=== PATIENT | female | born 1975 | race Caucasian/White ===

== ENCOUNTER 2020-10-13 15:59 | Emergency (ER) | payer BC, SELFPAY ==
[2020-10-13 16:00] VITALS: BP 122/79; PULSE 75; RESP 16; TEMP 36.6; O2SAT 99; BMI 23.9
--- NOTE | 2020-10-13 16:05 | XR_ITS ---
PROCEDURE: XR CHEST PORTABLE Referring Doctor: Kelly Mal Patient Age:45Y CLINICAL HISTORY: CHEST PAIN . Dyspnea. Smoker COMPARISON: CR CXR CHEST(2 VIEWS-NOT PORTABLE) from 01/17/2015 CR CXR CHEST(2 VIEWS-NOT PORTABLE) from 05/05/2016 FINDINGS: AP upright portable chest is compared to 2015 and 2014 CXR. The lungs are well expanded and overall appear fairly clear. The left lung stable unremarkable. Right chest but markings are slightly accentuated right infrahilar region but I believe this is basically stable and related overlying breast density but doubt early infiltrate. Heart, eboni and mediastinal structures appear satisfactory. monitor worker leads are in place but chest wall unremarkable no pleural effusion but no pneumothorax but . The cardiomediastinal silhouette and pulmonary vascularity are within normal limits. The lungs are clear without infiltrates, suspicious nodules, or pleural effusions. No acute bony abnormalities. IMPRESSION: Nothing definitely acute Lung markings are very slightly accentuated right infrahilar region compared to prior studies, but I suspect this due to technique and along with minimal chronic changes with smoking history.-. (Also with note subtle hyperexpansion towards the upper lung singh which may reflect some early emphysematous changes upper lobes). In either case currently doubt early infiltrate right infrahilar region but clinical correlation required. Dictated by: Omar Saunders MD 10/13/2020 17:00 Omar Saunders MD in [place] 10/13/2020 17:00
--- NOTE | 2020-10-13 16:06 | ECG_ITS ---
APPROVED REPORT Exam: Resting ECG HR:64 bpm ECG Measurements Heart Rate 64 AXES WV 146 P 58 QRSd 84 QRS 76 QT 392 T 58 QTc 404 Conclusion Normal sinus rhythm Normal ECG Electronically signed by : Jacob Acevedo, 10/14/2020 21:49:44
--- NOTE | 2020-10-13 16:10 | HMH.EDGENADL ---
ED Disposition Clinical Impression: Palpitations, Atypical chest pain Disposition: Home, Self-Care Condition on Discharge: Good Instructions: DI for Atypical Chest Pain, DI for Palpitations Additional Instructions: Additional instructions for CHEST PAIN: See your physician as soon as possible for further evaluation. Return immediately if worsening chest pain, vomiting, shortness of breath, fever, coughing of blood. Referrals: Provider,Referral, [Referring] - - Critical Care Critical Care Time: No Attestation: On 10/13/20, the high probability of a clinically significant, sudden or life threatening deterioration of the following system(s) required my full and direct attention, intervention and personal management. The time I documented below is in addition to time spent performing reported procedures but includes the following listed in this critical care notation. Medical Decision Making - Medical Records Medical records reviewed: Yes: I reviewed the patient's medical records. - Angel Inquiry Pt receiving controlled substance: No Vital Signs: 10/13/20 16:00 10/13/20 19:30 Temperature 98 F Temperature Source Oral Pulse Rate [Radial] 75 78 Respiratory Rate 16 14 Blood Pressure [Right Arm] 122/79 115/73 Blood Pressure Mean [Right Arm] 93 87 Blood Pressure Source [Right Arm] Automatic Cuff Blood Pressure Position [Right Arm] Sitting Sitting 02 Sat by Pulse Oximetry 99 99 Oxygen Delivery Method Room Air Room Air - Lab Data Lab results reviewed: Yes: I reviewed the patient's lab results. Lab Results 10/13/20 16:20: WBC 6.3, RBC 4.31, Hgb 13.5, Hct 40.5, MCV 93.9, MCH 31.4 H, MCHC 33.5, RDW 13.9, Plt Count 220, MPV 8.9, Neut % (Auto) 54.0, Lymph % (Auto) 36.2, Whitman % (Auto) 5.1, Eos % (Auto) 3.9, Baso % (Auto) 0.9, Neut # (Auto) 3.4, Lymph # (Auto) 2.3, Whitman # (Auto) 0.3, Eos # (Auto) 0.2, Baso # (Auto) 0.1 10/13/20 16:20: Sodium 140, Potassium 3.8, Chloride 107, Carbon Dioxide 27, Anion Gap 9.8, BUN 9, Creatinine 0.60, Estimated Creat Clear 114, Estimated GFR 108, Est GFR ( Amer) 131, Glucose 93, Calcium 8.9, Troponin I < 0.01 10/13/20 19:13: Troponin I < 0.01 Result diagrams: 10/13/20 16:20 10/13/20 16:20 Orders (Tests/Meds): ORDERS Category Date Time Status Troponin I Q3H Lab 10/13/20 22:15 Ordered - Radiology Data #1 Image(s): Chest Image Reviewed: Yes I have reviewed radiologist's interpretation PROCEDURE: XR CHEST PORTABLE Referring Doctor: Mal Mendoza Patient Age:45Y CLINICAL HISTORY: CHEST PAIN . Dyspnea. Smoker COMPARISON: CR CXR CHEST(2 VIEWS-NOT PORTABLE) from 01/17/2015 CR CXR CHEST(2 VIEWS-NOT PORTABLE) from 05/05/2016 FINDINGS: AP upright portable chest is compared to 2015 and 2014 CXR. The lungs are well expanded and overall appear fairly clear. The left lung stable unremarkable. Right chest but markings are slightly accentuated right infrahilar region but I believe this is basically stable and related overlying breast density but doubt early infiltrate. Heart, eboni and mediastinal structures appear satisfactory. 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 The cardiomediastinal silhouette and pulmonary vascularity are within normal limits. The lungs are clear without infiltrates, suspicious nodules, or pleural effusions. No acute bony abnormalities. IMPRESSION: Nothing definitely acute Lung markings are very slightly accentuated right infrahilar region compared to prior studies, but I suspect this due to technique and along with minimal chronic changes with smoking history.-. (Also with note subtle hyperexpansion towards the upper lung singh which may reflect some early emphysematous changes upper lobes). In either case currently doubt early infiltrate right infrahilar region but clinical correlation required.
[2020-10-13 16:33] LABS: Basophils # 0.1 K/mm3 (0-0.2); Basophils % 0.9 % (0.1-2.0); Eosinophils # 0.2 K/mm3 (0.0-0.4); Eosinophils % 3.9 % (0.1-12.0); Hematocrit 40.5 % (37.0-47.0); Hemoglobin 13.5 g/dL (12.2-16.2); Lymphocytes # 2.3 K/mm3 (0.7-4.5); Lymphocytes % 36.2 % (10-50); Mean Corpuscular HGB Conc 33.5 g/dL (31.8-35.4); Mean Corpuscular Hemoglobin 31.4 pg (27.0-31.2); Mean Corpuscular Volume 93.9 fl (81-99); Mean Platelet Volume 8.9 fl (7.4-10.4); Monocytes # 0.3 K/mm3 (0.1-1.0); Monocytes % 5.1 % (1.7-9.3); Neutrophils # 3.4 K/mm3 (1.8-7.8); Platelet Count 220 K/mm3 (142-424); Red Blood Count 4.31 M/mm3 (4.20-5.40); Red Cell Distribution Width 13.9 % (11.5-17.5); White Blood Count 6.3 K/mm3 (4.8-10.8)
[2020-10-13 16:42] LABS: Anion Gap 9.8 mEq/L (5-15); Blood Urea Nitrogen 9 mg/dl (7-17); Calcium 8.9 mg/dl (8.4-10.2); Carbon Dioxide 27 mmol/L (22.0-30.0); Chloride 107 mmol/L (98-107); Creatinine Clearance Estimated 114 mL/min (50-200); Estimated Glomerular Filt Rate 108 ml/min (>60); GFR (African American) 131 ML/MIN (>60); Glucose 93 mg/dl (74-100); Potassium 3.8 mmoL/L (3.5-5.1); Sodium 140 mmol/L (136-145)
[2020-10-13 16:55] LABS: Troponin I < 0.01 ng/ml (0.00-0.034)
--- NOTE | 2020-10-13 19:16 | PC.NURSE ---
blood sent to lab for 2nd trop
[2020-10-13 19:30] VITALS: BP 115/73; PULSE 78; RESP 14; O2SAT 99
--- NOTE | 2020-10-13 20:01 | PC.NURSE ---
called lab for trop. results. lab stated it would be another 15-20 minutes
[2020-10-13 20:23] LABS: Troponin I < 0.01 ng/ml (0.00-0.034)
[2020-10-13 20:27] VITALS: BP 129/61; PULSE 73; RESP 15; TEMP 36.8; O2SAT 99
== END 2020-10-13 20:29 | disposition home or self-care (01) ==
PROVIDERS: Emergency Provider Emergency Medicine; PCP Family Medicine
DX: R07.89 Other chest pain (principal); R00.2 Palpitations; Z88.0 Allergy status to penicillin; Z88.5 Allergy status to narcotic agent
CPT/HCPCS: 71045; 80048; 84484; 85025; 93005; 99283

== ENCOUNTER 2022-05-25 18:13 | Emergency (ER) | payer BC, SELFPAY ==
[2022-05-25 18:25] VITALS: BP 134/81; PULSE 76; RESP 19; TEMP 37; O2SAT 98; BMI 23.9
--- NOTE | 2022-05-25 18:36 | HMH.EDUTC ---
[facility] [place] Disposition Clinical Impression: UTI (urinary tract infection) Qualifiers: Urinary tract infection type: site unspecified Hematuria presence: with hematuria Qualified Code(s): N39.0 - Urinary tract infection, site not specified; R31.9 - Hematuria, unspecified Disposition: Home, Self-Care Condition on Discharge: Good Instructions: DI for Urinary Tract Infection (UTI), Urinary Tract Infection, Nitrofurantoin Additional Instructions: *Increase fluids. Water not Soda or Tea *Start antibiotic immediately and be sure to take as ordered for the FULL length of time although you should start to see improvement over the next 48 hours *Pyridium as needed Remember this medication will turn your urine [place]. This is normal but it will stain what ever it gets on *You should not use Pyridium for more than 48 hours. If so , follow up with your primary physician to review urine culture and ensure that antibiotic is adequate for infection *Be SURE to follow up anytime for new or worsening symptoms with your family doctor. AND in 48 hours for urine culture results with your family doctor, if you do not have a doctor then you may call back to the [facility] for urine culture results and further treatment. We do recommend that you choose and establish care with a Primary Care Physician. AND follow up with them in 10-14 days to repeat UA to ensure infection is resolved and blood no longer present *Be sure to let your PCP know that we sent urine cultures from the [facility] so they can follow up to ensure that you area the on the correct antibiotic Call your doctor office and make appointment for 48 hours (2 days from today) to follow up and get the results of your urine culture and further treatment Prescriptions: Nitrofurantoin Monohyd/M-Cryst [Macrobid 100 mg Capsule] 100 mg PO BID 7 Days #14 cap Prescription Printed Phenazopyridine HCl [Pyridium 200mg Tablet] 200 pow PO TID #6 tab Prescription Printed Referrals: Dorothy Crowley MD [Primary Care Provider] - As needed Time of Disposition: 18:43 Medical Decision Making - Angel Inquiry Pt receiving controlled substance: No Angel was queried for this patient: No Vital Signs: 05/25/22 18:25 Temperature 98.6 F Temperature Source Oral Pulse Rate [Left Brachial] 76 Respiratory Rate 19 Blood Pressure [Left Arm] 134/81 Blood Pressure Mean [Left Arm] 98 Blood Pressure Source [Left Arm] Automatic Cuff Blood Pressure Position [Left Arm] Sitting 02 Sat by Pulse Oximetry 98 Oxygen Delivery Method Room Air - Lab Data Lab results reviewed: Yes: I reviewed the patient's lab results. [facility] [place] HPI - General Stated complaint: possible UTi Time Seen by Provider: 05/25/22 18:36 Mode of Arrival: Ambulatory Source of Information: Patient Limitations: No Limitations Description of Symptoms (Recalled from Triage Doc. by RN): PATIENT C/O BLADDER SPASMS AND BURNING WITH URINATION X 2 DAYS HEENT Symptoms (Recalled from RN notes): No Resp Symptoms (Recalled from RN notes): No Skin Symptoms (Recalled from RN notes): No MS Symptoms (Recalled from RN notes): No Functional Status (Recalled from RN notes): WNL - History of Present Illness Provider Complaint: Patient states that she has been having burning with urination and bladder spasms for several days that has continued to get worse States that she feels like she does when she has a UTI - Related Data Previous Rx's Medication Instructions Recorded Nitrofurantoin Monohyd/M-Cryst 100 mg PO BID 7 Days #14 cap 05/25/22 [Macrobid 100 mg Capsule] Phenazopyridine HCl [Pyridium 200 pow PO TID #6 tab 05/25/22 200mg Tablet] Allergies Allergy/AdvReac Type Severity Reaction Status Date / Time hydrocodone [HYDROCODONE] Allergy Intermediate I-ITCHING Verified 10/13/20 20:26 Penicillins Allergy Intermediate I-ITCHING Verified 10/13/20 20:26 bupropion [BUPROPION] Allergy Unknown S-SWELLS-OR Verified 10/13/20 20:26 AL/THROAT - Worker's
[2022-05-25 18:37] LABS: Color,Urine Yellow (Yellow)
[2022-05-25 18:38] LABS: Apearance,Urine Cloudy (Clear); Bilirubin,Urine Negative (Negative); Blood, Urine 1+ (Negative); Glucose,Urine (UA) Negative (Negative); Ketones,Urine Negative (Negative); PH,Urine 5.5 (5.0-8.5); Protein,Urine 1+ (Negative); Specific Gravity, Urine 1.015 (1.005-1.030); UTC Leukocyte Esterase,Urine 2+ (Negative); UTC Nitrate,Urine Negative (Negative); Urobilinogen,Urine 1 EU/dl (0.2)
[2022-05-25 18:50] VITALS: BP 134/81; PULSE 76; RESP 19; TEMP 37; O2SAT 98
== END 2022-05-25 18:58 | disposition home or self-care (01) ==
PROVIDERS: Emergency Provider Nurse Practitioner; PCP Family Medicine
DX: N39.0 Urinary tract infection, site not specified (principal)
CPT/HCPCS: 81003; 87086; 87088; 87186; 99212; G0463

== ENCOUNTER 2022-06-08 14:12 | Emergency (ER) | payer BC, SELFPAY ==
[2022-06-08 14:30] VITALS: BP 127/85; PULSE 91; RESP 19; TEMP 37.2; O2SAT 100; BMI 20.5
[2022-06-08 14:41] LABS: UTC Strep Screen (Rapid) Negative (Negative)
--- NOTE | 2022-06-08 14:49 | HMH.EDUTC ---
[facility] [place] Disposition Clinical Impression: Sinusitis Qualifiers: Sinusitis location: unspecified location Chronicity: unspecified Qualified Code(s): J32.9 - Chronic sinusitis, unspecified Disposition: Home, Self-Care Condition on Discharge: Good Instructions: Sinusitis, DI for Sinusitis, DI for COVID-19 (Suspected or Confirmed ), Preventing the Spread of Coronavirus Discharge Instructions Additional Instructions: *Monitor Temp, Over the counter Motrin or Tylenol as directed/as needed Tylenol every 4 hours and Motrin every 6 hours (as long as your family doctor has told you that you can take it) for fever or pain. and straight to ER if unable to lower temp less than 101.0 after medication given *Warm salt water gargles may help to soothe the throat *Throat Lozenges *Warm fluids like tea with honey may help to soothe the throat *Sleep elevated *Humidifier/Vaporizer Your throat swab was sent for culture. Those results are typically sent to your primary care. Be sure to follow up in 2-3 days with your family doctor/primary care physician if no improvement so they can review those result and treat if necessary. If you don?t have a primary care doctor, I recommend you get one but in the mean time, you will have to return to a walk in clinic Follow up IMMEDIATELY for new or worsening symptoms or no Noticeable improvement over the next 48-72 hours. 911 for difficulty breathing or swallowing You were tested for today for COVID19 your test result should be back in the next 24-48 hours, you may Check your results on the [facility] My Health Portal Make sure to take your Vitamins Vit. C Vit D and Zinc if you can take them Prescriptions: guaiFENesin [Mucinex 600mg tablet] 1 - 2 tab PO Q12HP PRN #20 tab PRN Reason: Congestion Transmission Status: [facility] predniSONE [Prednisone 20mg Tab] 20 mg PO BID 5 Days #10 tab Transmission Status[facility] Azithromycin [Z-Albert 250mg Tab] 250 mg PO DIRECTED #6 tab Transmission Status: [facility] Referrals: Hamzah Jensen [Primary Care Provider] - Medical Decision Making - Angel Inquiry Pt receiving controlled substance: No Angel was queried for this patient: No Vital Signs: 06/08/22 14:30 Temperature 98.9 F Temperature Source Oral Pulse Rate [Right Brachial] 91 H Respiratory Rate 19 Blood Pressure [Right Arm] 127/85 Blood Pressure Mean [Right Arm] 99 Blood Pressure Source [Right Arm] Automatic Cuff Blood Pressure Position [Right Arm] Sitting 02 Sat by Pulse Oximetry 100 Oxygen Delivery Method Room Air - Lab Data Lab results reviewed: Yes: I reviewed the patient's lab results. Lab Results 06/08/22 14:40: Strep Scn Rapid Clinic Negative Orders (Tests/Meds): ORDERS Category Date Time Status Covid-19 Nasal PCR ([facility]) Routine Lab 06/08/22 14:25 Received Strep Screen Confirmation Stat Micro 06/08/22 14:40 Received [facility] HPI - General Stated complaint: covid test Time Seen by Provider: 06/08/22 14:49 Mode of Arrival: Ambulatory Source of Information: Patient Limitations: No Limitations Description of Symptoms (Recalled from Triage Doc. by RN): PATIENT C/O HEADACHE, SORE THROAT, COUGH WITH PHLEGM, AND RUNNY NOSE X 3 DAYS HEENT Symptoms (Recalled from RN notes): Yes Resp Symptoms (Recalled from RN notes): Yes Skin Symptoms (Recalled from RN notes): No MS Symptoms (Recalled from RN notes): No Functional Status (Recalled from RN notes): WNL - History of Present Illness Provider Complaint: Patient states that she has been having sinus congestion and pressure along with cough that at times may be productive, sore scratchy throat, body aches, and chills States that she hasnt been around anyone that she is aware of with COVID but not sure and wanted to get checked out and tested before she returned to work tomorrow - Related Data Previous Rx's Medication Instructions Recorded Nitrofuran
[2022-06-08 14:58] VITALS: BP 127/85; PULSE 91; RESP 19; TEMP 37.2; O2SAT 100
== END 2022-06-08 15:02 | disposition home or self-care (01) ==
PROVIDERS: Emergency Provider Nurse Practitioner; PCP Family Medicine
DX: J32.9 Chronic sinusitis, unspecified (principal)
CPT/HCPCS: 87880; 99212; C9803; G0463; U0003; U0005